=== PATIENT | female | born 1980 | race Caucasian/White ===

== ENCOUNTER 2021-07-28 12:55 | Emergency (ER) | payer MEDICAID ==
[~2021-07-28] VITALS: Ht 165.1 cm; Wt 136.6 kg
[2021-07-28] MEDS ORDERED: IV NORMAL SALINE 1000ML BAG 1,000 ML IV ONE (13:45)
[2021-07-28] MEDS ORDERED: FAMOTIDINE 20 MG/2 ML VIAL IVP ONE (14:15)
[2021-07-28] MEDS ORDERED: ONDANSETRON PF 4 MG/2 ML VIAL. IVP ONE (14:15)
[2021-07-28] MEDS ORDERED: fentaNYL PF VIAL 100 MCG/2 ML VIAL IVP ONE (14:15)
[2021-07-28 14:25] LABS: INFLUENZA A PATIENT NEGATIVE (NEGATIVE); INFLUENZA B PATIENT NEGATIVE (NEGATIVE)
[2021-07-28 14:29] LABS: BASO % 1 % (0-3); EOS % 0 % (0-3); HEMATOCRIT 40.4 % (36.0-47.0); HEMOGLOBIN 13.9 g/dL (12.0-15.5); LYMPH % 25 % (24-48); MEAN CORPUSCULAR HEMOGLOBIN 32 pg (25-35); MEAN CORPUSCULAR HGB CONC 35 g/dL (31-37); MEAN CORPUSCULAR VOLUME 92 fL (79-100); MONO # 0.5 x10^3/uL (0.0-1.1); MONO % 12 % (0-9); NEUT # 2.5 x10^3/uL (1.8-7.7); NEUT % 63 % (31-73); PLATELET COUNT 136 x10^3/uL (140-400)
[2021-07-28 14:37] LABS: CALCIUM 8.2 mg/dL (8.5-10.1); CREATININE 0.9 mg/dL (0.6-1.0); POTASSIUM 4.3 mmol/L (3.5-5.1)
[2021-07-28 14:42] LABS: ALBUMIN 2.9 g/dL (3.4-5.0); ALBUMIN/GLOBULIN RATIO 0.6 (1.0-1.7); TOTAL BILIRUBIN 0.5 mg/dL (0.2-1.0); TOTAL PROTEIN 7.8 g/dL (6.4-8.2)
[2021-07-28] MEDS ORDERED: INSULIN REGULAR 100 UNIT/ML 3ML VIAL. IV ONE (15:45)
--- NOTE | 2021-07-28 16:42 | RAD ---
EXAM: Chest, single view. HISTORY: Cough. Fever. COMPARISON: None. FINDINGS: A frontal view of the chest is obtained. There is diffuse lower lobe predominant interstiti al infiltrate. There is no consolidation, pleural effusion or pneumothorax. The heart is normal in si ze. IMPRESSION: Diffuse lower lobe predominant interstitial infiltrate. Electronically signed by: Jing Estes MD (07/28/2021 4:40 PM) [id number]
[2021-07-28 17:37] LABS: BILIRUBIN,URINE NEGATIVE (NEG); CLARITY,URINE TURBID; COLOR,URINE YELLOW; NITRITE,URINE NEGATIVE (NEG); PROTEIN,URINE NEGATIVE (NEG-TRACE)
[2021-07-28 17:44] LABS: BACTERIA,URINE FEW /HPF (0-FEW); BARBITURATES NEG (NEG); BENZODIAZEPINES NEG (NEG); CANNABINOIDS NEG (NEG); COCAINE NEG (NEG); METHADONE NEG (NEG); OPIATES NEG (NEG); PHENCYCLIDINE NEG (NEG); RBC,URINE 0 /HPF (0-2)
[2021-07-28 17:52] LABS: AMPHETAMINE/METHAMPHETAMINE NEG (NEG)
[2021-07-28] MEDS ORDERED: ONDA4TAB7 PO (18:36)
[2021-07-28] MEDS ORDERED: GUAI120L35 PO (18:36)
[2021-07-28] MEDS ORDERED: AMOX1TAB61 PO (18:36)
[2021-07-28] MEDS ORDERED: ONDANSETRON ODT 4 MG TAB.RAPDIS. PO PRN (18:45)
--- NOTE | 2021-07-28 18:55 | PHYS DOC ---
Past Medical History Past Medical History: Diabetes-Type II Additional Past Medical Histor: RIGHT DVT Past Surgical History: Other Additional Past Surgical Histo: BACK Smoking Status: Never Smoker Alcohol Use: None General Adult EDM: Chief Complaint: NAUSEA/VOMITING/DIARRHEA HPI: HPI: Patient is a 41 year old female with a history of diabetes type 2 who presents to the ED today complaining of nausea, vomiting, diarrhea, fatigue, headaches, fevers, symptoms for 5 days and have gotten worse in the last 2 days. Patient is also complaining of a cough. Patient states she is unvaccinated against COVID-19 and does not want to hear anything about Covid or the vaccine. She states she does not believe she has Covid. Review of Systems: Review of Systems: Constitutional: Reports fever, fatigue Eyes: Denies change in visual acuity. [] HENT: Denies nasal congestion or sore throat. [] Respiratory: Denies cough or shortness of breath. [] Cardiovascular: Denies chest pain or edema. [] GI: Reports nausea, vomiting, diarrhea. Denies abdominal pain, bloody stools : Denies dysuria. [] Musculoskeletal: Denies back pain or joint pain. [] Integument: Denies rash. [] Neurologic: Reports headache, denies focal weakness or sensory changes. [] Psychiatric: Denies depression or anxiety. [] Heart Score: C/O Chest Pain: N/A Risk Factors: Risk Factors: DM, Current or recent (<one month) smoker, HTN, HLP, family history of CAD, obesity. Risk Scores: Score 0 - 3: 2.5% MACE over next 6 weeks - Discharge Home Score 4 - 6: 20.3% MACE over next 6 weeks - Admit for Clinical Observation Score 7 - 10: 72.7% MACE over next 6 weeks - Early Invasive Strategies Current Medications: Current Medications Medications (Trade) Dose Ordered Sig/Shayna Start Time Stop Time Status Last Admin Dose Admin Casirivimab 600 mg/Imdevimab 600 mg/Sodium Chloride 50 ml @ 150 mls/hr 1X ONCE 07/28/21 19:00 07/28/21 19:19 Famotidine (Pepcid Vial) 20 mg 1X ONCE 07/28/21 14:15 07/28/21 14:16 DC 07/28/21 14:28 20 MG Fentanyl Citrate (Fentanyl 2ml Vial) 50 mcg 1X ONCE 07/28/21 14:15 07/28/21 14:16 DC 07/28/21 14:30 50 MCG Insulin Human Regular (HumuLIN R VIAL) 6 unit 1X ONCE 07/28/21 15:45 07/28/21 15:50 DC 07/28/21 16:23 6 UNIT Ondansetron HCl (Zofran Odt) 4 mg PRN Q4HRS PRN 07/28/21 18:45 Ondansetron HCl (Zofran) 4 mg 1X ONCE 07/28/21 14:15 07/28/21 14:16 DC 07/28/21 14:28 4 MG Sodium Chloride 1,000 ml @ 1,000 mls/hr 1X ONCE 07/28/21 13:45 07/28/21 14:44 DC 07/28/21 14:26 1,000 MLS/HR Allergies: Allergies: Allergies Coded Allergies Type Severity Reaction Last Updated Verified Penicillins Allergy Severe 07/28/21 Yes citalopram Allergy Severe rash 07/28/21 Yes doxycycline Allergy Severe rash 07/28/21 Yes Physical Exam: PE: Constitutional: Obese patient, no acute distress, non-toxic appearance. [] HENT: Normocephalic, atraumatic, bilateral external ears normal, oropharynx moist, no oral exudates, nose normal. [] Eyes: PERRLA, EOMI, conjunctiva normal, no discharge. [] Neck: Normal range of motion, no tenderness, supple, no stridor. [] Cardiovascular:Heart rate regular rhythm, no murmur [] Lungs & Thorax: Bilateral breath sounds clear to auscultation [] Abdomen: Bowel sounds normal, soft, no tenderness, no masses, no pulsatile masses. [] Skin: Warm, dry, no erythema, no rash. [] Back: No tenderness, no CVA tenderness. [] Extremities: No tenderness, no cyanosis, no clubbing, ROM intact, no edema. [] Neurologic: Alert and oriented X 3, normal motor function, normal sensory function, no focal deficits noted. [] Psychologic: Affect normal, judgement normal, mood normal. [] Current Patient Data: Labs: Laboratory Tests Test 07/28/21 13:42 07/28/21 14:15 07/28/21 17:33 Influenza Type A Antigen Negative (NEGATIVE) Influenza Type B Antigen Negative (NEGATIVE) SARS-CoV-2 Antigen (Rapid) Positive (NEGATIVE) *A White Blood Count 4.0 x10^3/uL (4.0-11.0) Red Blood Count 4.40 x10^6/uL (3.50-5.40) Hemoglobin 13.9 g/dL (12.0-15.5) Hematocrit 40.4 % (36.0-47.0) Mean Corpuscular Volume 92 fL (79-100) Mean Corpuscular Hemoglobin 32 pg (25-35) Mean Corpuscular Hemoglobin Concent 35 g/dL (31-37) Red Cell Distribution Width 13.0 % (11.5-14.5) Platelet Count 136 x10^3/uL (140-400) L Neutrophils (%) (Auto) 63 % (31-73) Lymphocytes (%) (Auto) 25 % (24-48) Monocytes (%) (Auto) 12 % (0-9) H Eosinophils (%) (Auto) 0 % (0-3) Basophils (%) (Auto) 1 % (0-3) Neutrophils # (Auto) 2.5 x10^3/uL (1.8-7.7) Lymphocytes # (Auto) 1.0 x10^3/uL (1.0-4.8) Monocytes # (Auto) 0.5 x10^3/uL (0.0-1.1) Eosinophils # (Auto) 0.0 x10^3/uL (0.0-0.7) Basophils # (Auto) 0.0 x10^3/uL (0.0-0.2) Sodium Level 133 mmol/L (136-145) L Potassium Level 4.3 mmol/L (3.5-5.1) Chloride Level 96 mmol/L (98-107) L Carbon Dioxide Level 28 mmol/L (21-32) Anion Gap 9 (6-14) Blood Urea Nitrogen 12 mg/dL (7-20) Creatinine 0.9 mg/dL (0.6-1.0) Estimated GFR (Cockcroft-Gault) 69.0 BUN/Creatinine Ratio 13 (6-20) Glucose Level 368 mg/dL (70-99) H Calcium Level 8.2 mg/dL (8.5-10.1) L Total Bilirubin 0.5 mg/dL (0.2-1.0) Aspartate Amino Transferase (AST) 24 U/L (15-37) Alanine Aminotransferase (ALT) 32 U/L (14-59) Alkaline Phosphatase 72 U/L (46-116) C-Reactive Protein, Quantitative 18.8 mg/L (0-3.3) H Total Protein 7.8 g/dL (6.4-8.2) Albumin 2.9 g/dL (3.4-5.0) L Albumin/Globulin Ratio 0.6 (1.0-1.7) L Lipase 69 U/L (73-393) L Ethyl Alcohol Level < 10 mg/dL (0-10) Urine Collection Type Unknown Urine Color Yellow Urine Clarity Turbid Urine pH 6.0 (<5.0-8.0) Urine Specific [place] >=1.030 (1.000-1.030) Urine Protein Negative mg/dL (NEG-TRACE) Urine Glucose (UA) >=1000 mg/dL (NEG) Urine Ketones (Stick) 15 mg/dL (NEG) Urine Blood Negative (NEG) Urine Nitrite Negative (NEG) Urine Bilirubin Negative (NEG) Urine Urobilinogen Dipstick 1.0 mg/dL (0.2 mg/dL) Urine Leukocyte Esterase Negative (NEG) Urine RBC 0 /HPF (0-2) Urine WBC 1-4 /HPF (0-4) Urine Squamous Epithelial Cells Mod /LPF Urine Bacteria Few /HPF (0-FEW) Urine Opiates Screen Neg (NEG) Urine Methadone Screen Neg (NEG) Urine Barbiturates Neg (NEG) Urine Phencyclidine Screen Neg (NEG) Urine Amphetamine/Methamphetamine Neg (NEG) Urine Benzodiazepines Screen Neg (NEG) Urine Cocaine Screen Neg (NEG) Urine Cannabinoids Screen Neg (NEG) Urine Ethyl Alcohol Neg (NEG) Laboratory Tests 07/28/21 14:15 Laboratory Tests 07/28/21 14:15 Vital Signs: Vital Signs Date Time Temp Pulse Resp B/P (MAP) Pulse Ox O2 Delivery O2 Flow Rate FiO2 07/28/21 13:06 99.0 99 20 149/79 (102) 92 Room Air 99.0 EKG: EKG: [] Radiology/Procedures: Radiology/Procedures: []PROCEDURE: CHEST AP ONLY EXAM: Chest, single view. HISTORY: Cough. Fever. COMPARISON: None. FINDINGS: A frontal view of the chest is obtained. There is diffuse lower lobe predominant interstitial infiltrate. There is no consolidation, pleural effusion or pneumothorax. The heart is normal in size. IMPRESSION: Diffuse lower lobe predominant interstitial infiltrate. Electronically signed by: Jing Edwards MD (07/28/2021 4:40 PM) [id number] DICTATED and SIGNED BY: JING EDWARDS MD DATE: 07/28/21 [id number] Course & Med Decision Making: Course & Med Decision Making Pertinent Labs and Imaging studies reviewed. (See chart for details) This is a 41-year-old female patient presenting to the ED today complaining of nausea, vomiting, headache, diarrhea, fatigue and fever, symptoms for 5 days. Vitals on arrival to the ED temperature 99.0, heart rate 99, respiration 20 on room air, O2 sats 92% on room air, blood pressure 149/79. RN reported patient's O2 sats slid down to 89 percent on room air and she was put on supplemental oxygen Chest x-ray interpreted by radiologist was noted for diffuse lower lobe predominant interstitial infiltrate. CBC with a normal WBC, CMP with glucose of 368, history of diabetes type 2 and sounds like uncontrolled. Anion gap is normal. CRP 18.8. Patient was given IV fluids Zofran and famotidine. Positive for COVID-19, informed patient she is positive, she states the uncle just a week ago from COVID-19, patient was requesting to be admitted. Spoke with Dr. Johns who came to talk to patient and did her discharge paperwork Jordi Disclaimer: Jordi Disclaimer: This electronic medical record was generated, in whole or in part, using a voice recognition dictation system. Departure Departure Impression: Primary Impression: Nausea & vomiting Qualified Codes: R11.2 - Nausea with vomiting, unspecified Additional Impressions: Diarrhea Qualified Codes: R19.7 - Diarrhea, unspecified Fever Qualified Codes: R50.9 - Fever, unspecified Fatigue Qualified Codes: R53.83 - Other fatigue Hyperglycemia Lab test positive for detection of COVID-19 virus Bilateral pneumonia Qualified Codes: J18.9 - Pneumonia, unspecified organism Disposition: 01 HOME / SELF CARE / HOMELESS Condition: STABLE Referrals: NO PCP (PCP) Patient Instructions: Cough, Adult, [id number], Fever, Adult, Nausea and Vomiting, [id number] Additional Instructions: You are positive for COVID-19. Please take the prescribed medications that were sent to your pharmacy. Please quarantine yourself for 14 days. Push fluids, rest, maintain good hand hygiene. Wear your mask around other people. Your blood sugar is also running high. Follow-up with your own doctor in 1 week Scripts Ondansetron Hcl (ZOFRAN) 4 Mg Tablet 1 TAB PO Q6HRS for Nausea for 10 Days, #40 TAB Prov: JASON JOHNS MD 07/28/21 Guaifenesin/Codeine Phosphate (Codeine-Guaifen 10-100 mg/5 ml) 120 Ml Liquid 5 ML PO PRN Q6HRS PRN for cough and congestion MDD 20 Milliliter(s) for 6 Days, #120 ML 0 Refills Prov: JASON JOHNS MD 07/28/21 Amoxicillin/Potassium Clav (AUGMENTIN 875-125 TABLET) 1 Each Tablet 1 TAB PO BID for Pneumonia for 7 Days, #14 TAB 0 Refills Prov: JASON JOHNS MD 07/28/21 STEFANY HASTINGS APRN Jul 28, 2021 18:55
--- NOTE | 2021-07-28 18:57 | PDOC2 ---
CONSULT Date of Consult Date of Consult DATE: 07/28/21 TIME: 18:40 Reason for Consult Reason for Consult: COVID 19 outpatient infusion Referring Physician Referring Physician: Jennyfer Skinner Identification/Chief Complaint Chief Complaint Shortness of breath and cough Source Source: Patient History of Present Illness Reason for Visit: Ms. 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 Her initial symptoms began with what she thought was a sinus infection on 07/16/2021 for which she has been using [id number] remedies and nasal saline irrigation. Her symptoms progressed and from 07 23-07 25 she noted fever of at least 101.8 F daily T-max was 102.6 F. She has been having loose stools over the past several days as well as a nonproductive cough. This morning she had some nausea and one episode of emesis and when she went to go lay down in her bed she had an episode of diarrhea in her bed was able to get up to the bathroom in time and so felt she should come in to be evaluated after discussion with her mother. On further review of systems she notes a headache that she has developed as well over the last 3 days that is fairly persistent but does remit with NSAIDs. She has no pain complaints. Vitals in ED temp 99 F pulse 99/min respirations 20/min blood pressure 149/79 pulse oximetry between 92% 96% on room air. Labs obtained in ED with WBC 4 hemoglobin 13.9 platelets 136, NA 133, K4.3, BUN 12, CR 0.9, glucose 368, LFTs within normal laboratory limits lipase 69 albumin 2.9, CRP 18.8 UDS negative UA bland, rapid influenza negative rapid COVID-19 positive Chest radiograph with diffuse lower lobe interstitial infiltrates no clear-cut consolidation or pleural effusion no pneumothorax. This consistent with COVID- 19 diagnosis. After discussion bedside in the ED with patient and her mother I have counseled them that she meets criteria for REGEN-CoV - Casirivimab + Imdevimab infusion therapy. Patient informed that Regen-CoV is an approved drug and is authorized by the FDA for outpatient and emergency room treatment of COVID 19 in order to prevent progression of symptoms and avoid hospitalization, she is amenable to this and consents to treatment. Past Medical History Cardiovascular: HTN, Hyperlipidemia Heme/Onc: Other (RLE DVT) Endocrine: Diabetes Past Surgical History Past Surgical History: Other (Back surgery) Family History Family History: Diabetes, High Cholestrol, Hypertension Social History Social History: Parent (Tasha) No ALCOHOL: none Lives: Friends Current Medications Current Medications Current Medications Sodium Chloride 1,000 ml @ 1,000 mls/hr 1X ONCE IV Last administered on 07/28/21at 14:26; Start 07/28/21 at 13:45; Stop 07/28/21 at 14:44; Status DC Ondansetron HCl (Zofran) 4 mg 1X ONCE IVP Last administered on 07/28/21at 14:28; Start 07/28/21 at 14:15; Stop 07/28/21 at 14:16; Status DC Fentanyl Citrate (Fentanyl 2ml Vial) 50 mcg 1X ONCE IVP Last administered on 07/28/21at 14:30; Start 07/28/21 at 14:15; Stop 07/28/21 at 14:16; Status DC Famotidine (Pepcid Vial) 20 mg 1X ONCE IVP Last administered on 07/28/21at 14:28; Start 07/28/21 at 14:15; Stop 07/28/21 at 14:16; Status DC Insulin Human Regular (HumuLIN R VIAL) 6 unit 1X ONCE IV Last administered on 07/28/21at 16:23; Start 07/28/21 at 15:45; Stop 07/28/21 at 15:50; Status DC Ondansetron HCl (Zofran Odt) 4 mg PRN Q4HRS PRN PO NAUSEA; Start 07/28/21 at 18:45 Casirivimab 600 mg/Imdevimab 600 mg/Sodium Chloride 50 ml @ 150 mls/hr 1X ONCE IV ; Start 07/28/21 at 19:00; Stop 07/28/21 at 19:19 Active Scripts Active Zofran (Ondansetron Hcl) 4 Mg Tablet 1 Tab PO Q6HRS 10 Days Codeine-Guaifen 10-100 mg/5 ml (Guaifenesin/Codeine Phosphate) 120 Ml Liquid 5 Ml PO PRN Q6HRS PRN MDD 20 Milliliter(s) 6 Days Augmentin 875-125 Tablet (Amoxicillin/Potassium Clav) 1 Each Tablet 1 Tab PO BID 7 Days Allergies Allergies: Coded Allergies: Penicillins (Verified Allergy, Severe, 07/28/21) citalopram (Verified Allergy, Severe, rash, 07/28/21) doxycycline (Verified Allergy, Severe, rash, 07/28/21) ROS General: YES: Fatigue, Malaise, Appetite; No: Chills, Night Sweats, Other PSYCHOLOGICAL ROS: No: Anxiety, Behavioral Disorder, Concentration difficultie, Decreased libido, Depression, Disorientation, Hallucinations, Hostility, Irritablity, Memory difficulties, Mood Swings, Obsessive thoughts, Physical abuse, Sexual abuse, Sleep disturbances, Suicidal ideation, Other Eyes: No Blurry vision, No Decreased vision, No Double vision, No Dry eyes, No Excessive tearing, No Eye Pain, No Itchy Eyes, No Loss of vision, No Photophob ia, No Scotomata, No Uses contacts, No Uses glasses, No Other HEENT: No: Heacaches, Visual Changes, Hearing change, Nasal congestion, Nasal discharge, Oral lesions, Sinus pain, Sore Throat, Epistaxis, Sneezing, Snoring, Tinnitus, Vertigo, Vocal changes, Other ALLERGY AND IMMUNOLOGY: No: Hives, Insect Bite Sensitivity, Itchy/Watery Eyes, Nasal Congestion, Post Nasal Drip, Seasonal Allergies, Other Hematological and Lymphatic: YES: Blood Clots; No: Bleeding Problems, Blood Transfusions, Brusing, Night Sweats, Pallor, Swollen Lymph Nodes, Other ENDOCRINE: No: Breast Changes, Galactorrhea, Hair Pattern Changes, Hot Flashes, Malaise/lethargy, Mood Swings, Palpitations, Polydipsia/polyuria, Skin Changes, Temperature Intolerance, Unexpected Weight Changes, Other Breast: No New/Changing Breast Lumps, No Nipple changes, No Nipple discharge, No Other Respiratory: YES: Cough, Shortness of breath, SOB with excertion; No: Hemoptysis, Orthopnea, Pleuritic Pain, Sputum Changes, Stridor, Tachypnea, Wheezing, Other Cardiovascular: No Chest Pain, No Palpitations, No Orthopnea, No Paroxysmal Noc. Dyspnea, No Edema, No Lt Headedness, No Other Gastrointestinal: Yes Nausea, Yes Abdominal Pain, Yes Diarrhea; No Vomiting, No Constipation, No Melena, No Hematochezia, No Other Genitourinary: No Dysuria, No Frequency, No Incontinence, No Hematuria, No Retention, No Discharge, No Urgency, No Pain, No Flank Pain, No Other, No , No , No , No , No , No , No Musculoskeletal: No Gait Disturbance, No Joint Pain, No Joint Stiffness, No Joint Swelling, No Muscle Pain, No Muscular Weakness, No Pain In:, No Swelling In:, No Other Neurological: No Behavorial Changes, No Bowel/Bladder ControlChng, No Confusion, No Dizziness, No Gait Disturbance, No Headaches, No Impaired Coord/balance, No Memory Loss, No Numbness/Tingling, No Seizures, No Speech Problems, No Tremors, No Visual Changes, No Weakness, No Other Skin: No Dry Skin, No Eczema, No Hair Changes, No Lumps, No Mole Changes, No Mottling, No Nail Changes, No Pruritus, No Rash, No Skin Lesion Changes, No Other, No Acne Physical Exam General: Alert, Oriented X3, Cooperative, No acute distress HEENT: Atraumatic, PERRLA, EOMI, Mucous membr. moist/pink Lungs: Clear to auscultation, Normal air movement Heart: Regular rate, Normal S1, Normal S2, No murmurs Abdomen: Normal bowel sounds, Soft, No tenderness, No hepatosplenomegaly, No masses Extremities: No clubbing, No cyanosis, No edema, Normal pulses, No tenderness/swelling Skin: No rashes, No breakdown Neuro: Normal gait, Normal speech, Normal tone, Sensation intact, Reflexes 2+ Psych/Mental Status: Mental status NL, Mood NL MUSCULOSKELETAL: No joint tenderness, No deformity, No swelling, No muscular tenderness noted, Full range of motion without pain Vitals VITALS Vital Signs Date Time Temp Pulse Resp B/P (MAP) Pulse Ox O2 Delivery O2 Flow Rate FiO2 07/28/21 13:06 99.0 99 20 149/79 (102) 92 Room Air 99.0 Labs Labs Laboratory Tests Test 07/28/21 13:42 07/28/21 14:15 07/28/21 17:33 Influenza Type A Antigen Negative (NEGATIVE) Influenza Type B Antigen Negative (NEGATIVE) SARS-CoV-2 Antigen (Rapid) Positive (NEGATIVE) White Blood Count 4.0 x10^3/uL (4.0-11.0) Red Blood Count 4.40 x10^6/uL (3.50-5.40) Hemoglobin 13.9 g/dL (12.0-15.5) Hematocrit 40.4 % (36.0-47.0) Mean Corpuscular Volume 92 fL (79-100) Mean Corpuscular Hemoglobin 32 pg (25-35) Mean Corpuscular Hemoglobin Concent 35 g/dL (31-37) Red Cell Distribution Width 13.0 % (11.5-14.5) Platelet Count 136 x10^3/uL (140-400) Neutrophils (%) (Auto) 63 % (31-73) Lymphocytes (%) (Auto) 25 % (24-48) Monocytes (%) (Auto) 12 % (0-9) Eosinophils (%) (Auto) 0 % (0-3) Basophils (%) (Auto) 1 % (0-3) Neutrophils # (Auto) 2.5 x10^3/uL (1.8-7.7) Lymphocytes # (Auto) 1.0 x10^3/uL (1.0-4.8) Monocytes # (Auto) 0.5 x10^3/uL (0.0-1.1) Eosinophils # (Auto) 0.0 x10^3/uL (0.0-0.7) Basophils # (Auto) 0.0 x10^3/uL (0.0-0.2) Sodium Level 133 mmol/L (136-145) Potassium Level 4.3 mmol/L (3.5-5.1) Chloride Level 96 mmol/L (98-107) Carbon Dioxide Level 28 mmol/L (21-32) Anion Gap 9 (6-14) Blood Urea Nitrogen 12 mg/dL (7-20) Creatinine 0.9 mg/dL (0.6-1.0) Estimated GFR (Cockcroft-Gault) 69.0 BUN/Creatinine Ratio 13 (6-20) Glucose Level 368 mg/dL (70-99) Calcium Level 8.2 mg/dL (8.5-10.1) Total Bilirubin 0.5 mg/dL (0.2-1.0) Aspartate Amino Transf (AST/SGOT) 24 U/L (15-37) Alanine Aminotransferase (ALT/SGPT) 32 U/L (14-59) Alkaline Phosphatase 72 U/L (46-116) C-Reactive Protein, Quantitative 18.8 mg/L (0-3.3) Total Protein 7.8 g/dL (6.4-8.2) Albumin 2.9 g/dL (3.4-5.0) Albumin/Globulin Ratio 0.6 (1.0-1.7) Lipase 69 U/L (73-393) Ethyl Alcohol Level < 10 mg/dL (0-10) Urine Collection Type Unknown Urine Color Yellow Urine Clarity Turbid Urine pH 6.0 (<5.0-8.0) Urine Specific Alpine >=1.030 (1.000-1.030) Urine Protein Negative mg/dL (NEG-TRACE) Urine Glucose (UA) >=1000 mg/dL (NEG) Urine Ketones (Stick) 15 mg/dL (NEG) Urine Blood Negative (NEG) Urine Nitrite Negative (NEG) Urine Bilirubin Negative (NEG) Urine Urobilinogen Dipstick 1.0 mg/dL (0.2 mg/dL) Urine Leukocyte Esterase Negative (NEG) Urine RBC 0 /HPF (0-2) Urine WBC 1-4 /HPF (0-4) Urine Squamous Epithelial Cells Mod /LPF Urine Bacteria Few /HPF (0-FEW) Urine Opiates Screen Neg (NEG) Urine Methadone Screen Neg (NEG) Urine Barbiturates Neg (NEG) Urine Phencyclidine Screen Neg (NEG) Urine Amphetamine/Methamphetamine Neg (NEG) Urine Benzodiazepines Screen Neg (NEG) Urine Cocaine Screen Neg (NEG) Urine Cannabinoids Screen Neg (NEG) Urine Ethyl Alcohol Neg (NEG) Laboratory Tests Test 07/28/21 13:42 07/28/21 14:15 07/28/21 17:33 Influenza Type A Antigen Negative (NEGATIVE) Influenza Type B Antigen Negative (NEGATIVE) SARS-CoV-2 Antigen (Rapid) Positive (NEGATIVE) White Blood Count 4.0 x10^3/uL (4.0-11.0) Red Blood Count 4.40 x10^6/uL (3.50-5.40) Hemoglobin 13.9 g/dL (12.0-15.5) Hematocrit 40.4 % (36.0-47.0) Mean Corpuscular Volume 92 fL (79-100) Mean Corpuscular Hemoglobin 32 pg (25-35) Mean Corpuscular Hemoglobin Concent 35 g/dL (31-37) Red Cell Distribution Width 13.0 % (11.5-14.5) Platelet Count 136 x10^3/uL (140-400) Neutrophils (%) (Auto) 63 % (31-73) Lymphocytes (%) (Auto) 25 % (24-48) Monocytes (%) (Auto) 12 % (0-9) Eosinophils (%) (Auto) 0 % (0-3) Basophils (%) (Auto) 1 % (0-3) Neutrophils # (Auto) 2.5 x10^3/uL (1.8-7.7) Lymphocytes # (Auto) 1.0 x10^3/uL (1.0-4.8) Monocytes # (Auto) 0.5 x10^3/uL (0.0-1.1) Eosinophils # (Auto) 0.0 x10^3/uL (0.0-0.7) Basophils # (Auto) 0.0 x10^3/uL (0.0-0.2) Sodium Level 133 mmol/L (136-145) Potassium Level 4.3 mmol/L (3.5-5.1) Chloride Level 96 mmol/L (98-107) Carbon Dioxide Level 28 mmol/L (21-32) Anion Gap 9 (6-14) Blood Urea Nitrogen 12 mg/dL (7-20) Creatinine 0.9 mg/dL (0.6-1.0) Estimated GFR (Cockcroft-Gault) 69.0 BUN/Creatinine Ratio 13 (6-20) Glucose Level 368 mg/dL (70-99) Calcium Level 8.2 mg/dL (8.5-10.1) Total Bilirubin 0.5 mg/dL (0.2-1.0) Aspartate Amino Transf (AST/SGOT) 24 U/L (15-37) Alanine Aminotransferase (ALT/SGPT) 32 U/L (14-59) Alkaline Phosphatase 72 U/L (46-116) C-Reactive Protein, Quantitative 18.8 mg/L (0-3.3) Total Protein 7.8 g/dL (6.4-8.2) Albumin 2.9 g/dL (3.4-5.0) Albumin/Globulin Ratio 0.6 (1.0-1.7) Lipase 69 U/L (73-393) Ethyl Alcohol Level < 10 mg/dL (0-10) Urine Collection Type Unknown Urine Color Yellow Urine Clarity Turbid Urine pH 6.0 (<5.0-8.0) Urine Specific Alpine >=1.030 (1.000-1.030) Urine Protein Negative mg/dL (NEG-TRACE) Urine Glucose (UA) >=1000 mg/dL (NEG) Urine Ketones (Stick) 15 mg/dL (NEG) Urine Blood Negative (NEG) Urine Nitrite Negative (NEG) Urine Bilirubin Negative (NEG) Urine Urobilinogen Dipstick 1.0 mg/dL (0.2 mg/dL) Urine Leukocyte Esterase Negative (NEG) Urine RBC 0 /HPF (0-2) Urine WBC 1-4 /HPF (0-4) Urine Squamous Epithelial Cells Mod /LPF Urine Bacteria Few /HPF (0-FEW) Urine Opiates Screen Neg (NEG) Urine Methadone Screen Neg (NEG) Urine Barbiturates Neg (NEG) Urine Phencyclidine Screen Neg (NEG) Urine Amphetamine/Methamphetamine Neg (NEG) Urine Benzodiazepines Screen Neg (NEG) Urine Cocaine Screen Neg (NEG) Urine Cannabinoids Screen Neg (NEG) Urine Ethyl Alcohol Neg (NEG) Images Images Chest radiograph: A frontal view of the chest is obtained. There is diffuse lower lobe predominant interstitial infiltrate. There is no consolidation, pleural effusion or pneumothorax. The heart is normal in size. IMPRESSION: Diffuse lower lobe predominant interstitial infiltrate. Assessment/Plan Assessment/Plan A/P: COVID 19 -not hypoxic. REGEN-CoV - Casirivimab + Imdevimab is appropriate therapy for infusion in the ED of counseled on this therapy to avoid hospitalization and progression of disease. She and her mother consent to treatment Pneumonia -likely COVID-19 related given the symptoms since 07/16/2021 of bilateral maxillary sinusitis to be appropriate go home on 7 additional days of Augmentin therapy outpatient she notes she has had amoxicillin before and has no allergies to this only to doxycycline and penicillin. Type 2 diabetes - cont current outpatient regimen of glargine and sliding scale insulin HTN - cont home meds HLD - cont statin Morbid obesity -counseled on lifestyle modification Recurrent right lower extremity DVTs on long-term Xarelto therapy -continue Xarelto therapy FEN - ADA diet PPX - xarelto FULL CODE Dispo -outpatient infusion of REGEN-CoV - Casirivimab + Imdevimab and discharge home on Augmentin Zofran and cough syrup counseled on taking zinc and return to ED if symptoms worsen and to check pulse oximetry at home. Patient meets criteria for outpatient COVID-19 treatment to prevent worsening disease based on age greater than 12 and BMI 50 + type 2 diabetes mellitus 1) Patient has been given the fact sheet for patients and caregivers for COVID 19 and treatment 2) informed of alternatives to receiving what is REGEN-CoV - Casirivimab + Imdevimab 3) Patient informed that Regen-CoV is an approved drug and is authorized by the FDA under emergency use authorization. Thanks for the consult JASON JOHNS MD Jul 28, 2021 18:57
[2021-07-28] MEDS ORDERED: CASIRIVIMAB/IMDEVIMAB 600/600mg in IV NS TV=50 ML IV ONE (19:00)
[2021-07-28 20:29] VITALS: BP 125/62
== END 2021-07-28 21:45 | disposition home or self-care (01) ==
LOC: ER 12:55
DX: U07.1 COVID-19 (principal); J18.9 Pneumonia, unspecified organism; E11.65 Type 2 diabetes mellitus with hyperglycemia; R11.2 Nausea with vomiting, unspecified; R19.7 Diarrhea, unspecified; Z20.822 Contact with and (suspected) exposure to COVID-19; Z88.0 Allergy status to penicillin; Z88.1 Allergy status to other antibiotic agents; Z88.8 Allergy status to other drugs, medicaments and biological substances
CPT/HCPCS: 36415; 71045; 80053; 80307; 81001; 83690; 85025; 86140; 87426; 87804; 96361; 96374; 96375; 99285; G0480; J1815; J2405; J3010; J3490; J7030; M0243; Q0244; 96365